=== PATIENT | female | born 1975 | race Caucasian/White ===

== ENCOUNTER → 2025-05-06 | Outpatient (CLI) | payer OTHER, SELFPAY ==
[2025-05-06 18:31] LABS: Follicle Stimulating Hormone 6.6 mIU/mL
[2025-05-10 01:07] LABS: Anti-Mullerian Hormone,Serum 0.044 ng/mL (.)
[2025-05-11 13:08] LABS: HPV APTIMA, High Risk Negative (Negative)
== END | disposition home or self-care (01) ==
PROVIDERS: Referring Provider Obstetrics & Gynecology; Visit Provider Obstetrics & Gynecology
DX: Z12.4 Encounter for screening for malignant neoplasm of cervix (principal); N91.2 Amenorrhea, unspecified
CPT/HCPCS: 36415; 82670; 83001; 83002; 83516; 87624; 88175; G0145

== ENCOUNTER 2025-06-18 09:15 | Day surgery (SDC) | payer OTHER, SELFPAY ==
[2025-06-11 15:02] LABS: Hematocrit 36.8 % (37-47); Hemoglobin 12.4 g/dL (12.0-15.0); Mean Corp Hgb Conc 33.7 g/dL (32-36); Mean Corpuscular Volume 86.4 fL (81-99); Mean Platelet Vol. 9.8 fl (6.2-12.0); Platelet Count 255 K/mm3 (150-450); RBC Distribution Width CV 12.9 % (11.6-14.6); RBC Distribution Width SD 39.9 fl (35.1-43.9); Red Blood Count 4.26 M/mm3 (4.2-5.4); White Blood Count 9.5 K/mm3 (4.4-11.0)
[2025-06-18] VITALS (9 sets, daily range): BP systolic 100–115; BP diastolic 61–82; PULSE 69–90; RESP 16–18; TEMP 36.5–36.6; O2SAT 93–98; BMI 30.3
--- NOTE | 2025-06-18 09:32 | EKG12_ITS ---
Test Reason : PREOP Blood Pressure : */* mmHG Vent. Rate : 83 BPM Atrial Rate : 83 BPM P-R Int : 154 ms QRS Dur : 70 ms QT Int : 368 ms P-R-T Axes : 66 25 28 degrees QTcB Int : 432 ms Normal sinus rhythm Normal ECG No previous ECGs available Confirmed by Sid Pineda ([id number]), photo editor EVELIO SHANNON ([id number]) on 06/19/2025 1:53:29 PM Referred By: Judy Pierre Confirmed By: Sid Pineda
[2025-06-18 09:49] LABS: Internal QC Validated? YES +Cl - CLEAR BKGD; Pregnancy, Urine Negative Negative
[2025-06-18 09:50] LABS: Record Kit Lot#,Urine Preg 980607
--- NOTE | 2025-06-18 10:40 | PCM.HP.BLA ---
History and Physical Date of Admission: 06/18/25 Intake Vital Signs 05/06/2515:51 06/11/2514:57 Height 5 ft 7 in 5 ft 7 in Weight: 192 lb 4 oz 194 lb 3 oz BMI 30.1 30.4 BP 117/80 110/76 Intake Visit Reasons: IUD removal under roberto. & BS Chief Complaint: pre op Supervisor Twisting Department Required: No Is patient in pain?: No Allergies No Known Allergies Allergy (Verified 06/11/25 14:55) Medications Medication Instructions Recorded Confirmed Type NK 05/06/25 06/11/25 History Patient : No : No [facility] Medical History Wears contact lenses Loose, teeth Former smoker History of multiple miscarriages Surgical History Hx of wisdom tooth extraction History of dilation and curettage Social History current occupational status: employed current occupation: [employer] sexually active: Yes Smoking Status: Former smoker alcohol intake: current alcohol intake frequency: holidays/special occasions only substance use type: does not use additional social history: : Andrew HPI IUD removal under roberto. & BS Details: LORRIE VALE is a 49 year old who presents for preop hysteroscopy D&C removal of IUD and laparoscopic bilateral salpingectomy for contraceptive management. IUD was attempted to be removed in the office without success. History 4 Elective abortions Hx Para 1 Spontaneous abortions Hx # Term Pregnancies Ectopic pregnancies Hx # Pregnancies Multiple births # of living children 1 Past Pregnancies Del. Date Name GA/Weeks Outcome Route Bth Weight Infant Gen [facility] Andrew Male [facility] [place] ROS Const ROS Unobtainable: All systems reviewed & are unremarkable except as noted in H Resp Resp: Reports system reviewed and no additional complaints, except as documented; Denies cough GI GI: Reports as per HPI Psych Psych: Reports system reviewed and no additional complaints, except as documented Exam Const General: cooperative, healthy appearing, comfortable and no acute distress Resp Effort & Inspection: normal respiratory effort Skin General: no rashes or lesions noted Psych Appearance: grossly normal Speech and Movement: speech and movement normal Coding Level of Care Code Off vis,est,level 4 Diagnoses IUD strings lost T83.32XA Consultation for sterilization Z30.09 Assessment and Plan Assessment and Plan (1) IUD strings lost: Status: Acute (2) Consultation for sterilization: Status: Acute Plan After discussing the patient's diagnosis and treatment plan options, patient wishes to proceed with surgical management. I have discussed with the patient the risks, benefits, and alternatives of the procedure which include but are not limited to risks of anesthesia, bleeding, infection, possible damage to bowel, bladder, or surrounding vasculature which could lead to additional surgery to evaluate any complications. Patient agrees to procedure and wishes to proceed. ACOG/uptodate references given for additional information regarding procedure. plan hysteroscopy removal of IUD and laparoscopic BS.
--- NOTE | 2025-06-18 10:41 | PCM.PRE.AN2 ---
ASA Classification* ASA Classification ASA Classification: 2 Assessment & Plan Anesthesia* Anesthesia Assessment Anesthesia Assessment: Discussed sedation and/or anesthesia options, risks, benefits, and alternatives with patient/parents/legal guardian/POA. Questions invited. The patient/parents/legal guardian/POA seems to understand and agrees to proceed with anesthesia plan. Reviewed the physical assessment, medical history, allergy history and patient home medications list prior to surgery/procedure/anesthetic and documented any changes. Performed airway and anesthesia risk assessments. Anesthesia Type Anesthesia Type: General History Source History Obtained from:: Patient and Chart Anesthesia Focused Assessment* Temperature: 97.7 F Pulse Rate: 78 Blood Pressure: 114/68 Respiratory Rate: 16 Pulse Ox: 98 Oxygen Delivery Method: Room Air Airway Assessment Mouth opens: >3 cm Mallampati Score: II Teeth Condition: Intact Labs Anesthesia Preop lab: CBC WBC, (4.4-11.0) 9.5 K/mm3 06/11/25, 14:44 RBC, (4.2-5.4) 4.26 M/mm3 06/11/25, 14:44 Hgb, (12.0-15.0) 12.4 g/dL 06/11/25, 14:44 Hct, (37-47) 36.8 % L 06/11/25, 14:44 Plt Count, (150-450) 255 K/mm3 06/11/25, 14:44 CHEMISTRY COAG PT, (11.7-14.9) 12.7 SECONDS 12/06/16, 21:25 Urine Test Negative Negative Today, 09:42 Pre-Assessment Diagnosis/Proposed Procedure Planned Operative Procedure(s): LAP SALPINGECTOMY REMOVAL OF RETAINED IUD Anesthesia History Anesthesia History - individualized education plan aide: Anesthesia History - individualized education plan aide Hx Hospitalization No 06/10/25 09:28 Any Problems With Anesthesia No 06/10/25 09:28 Cholinesterase deficiency No 06/10/25 09:28 You/Your Family Experience No 06/10/25 09:28 fever (hyperthermia) with Relationship Recent Exposure to Contagious No 06/18/25 09:58 Disease Does patient have nerve No 06/10/25 09:28 stimulator Patient instructed to have device shut off --Does patient have Pacemaker No 06/18/25 09:58 or ICD? When Was Last Pacemaker Check QUESTION #4 FULL TEXT: You/Your Family Experience fever (hyperthermia) with Anesthesia Last Oral Intake Last Oral intake: Last Oral Intake NPO since 05:30 06/18/25 09:58 Meds taken in AM with sips of No 06/18/25 09:58 water? Meds patient instructed to take am of surgery PONV PONV - individualized education plan aide: PONV - individualized education plan aide Female Yes 06/10/25 09:28 HX of Motion Sickness Yes 06/10/25 09:28 HX of N/V After Surgery No 06/10/25 09:28 Non-Smoker Yes 06/10/25 09:28 Duration of Surgery greater No 06/10/25 09:28 than 60 minutes Number of Risk Factors 3 06/10/25 09:28 PONV Score Moderate Risk 06/10/25 09:28 Height & Weight Height & Weight: Anesthesia: Height & Weight Height 5 ft 7 in 06/18/25 09:58 Weight: 87.9 kg 06/18/25 09:58 Body Mass Index (BMI) 30.3 06/18/25 09:58 Respiratory Assessment Respiratory Assessment - individualized education plan aide: Respiratory Tract Infection Hx - individualized education plan aide Hx Respiratory Tract Infection No 06/10/25 09:28 STOP Sleep Apnea STOP Sleep Apnea - individualized education plan aide: STOP Sleep Apnea - individualized education plan aide Hx Hypertension No 06/10/25 09:28 Hx Sleep Apnea No 06/10/25 09:28 CPAP BIPAP Do you snore loudly (louder No 06/10/25 09:28 than talking or can be heard Do you often feel tired/ Yes 06/10/25 09:28 fatigued/ sleepy during daytime? Has anyone observed you stop No 06/10/25 09:28 breathing during sleep? STOP Results Negative 06/10/25 09:28 QUESTION #5 FULL TEXT : Do you snore loudly (louder than talking or can be heard through closed doors)? Tobacco Use History Tobacco Use History - individualized education plan aide: Tobacco Use History - individualized education plan aide Tobacco Use Smoking Status Former smoker 06/10/25 09:28 Hx Tobacco Use No 06/10/25 09:28 Years Smoking Packs Smoked per Day Smoking Cessation Date was Yes - quit smoking within 15 06/10/25 09:28 within the last 15 years years Hx Smoking Cessation Date 08/02/23 06/10/25 09:28 Hx Smoking Cessation No 06/10/25 09:28 Counseling Hematologic Medial History Hematologic Hx - individualized education plan aide: Hematologic Medical Hx - documentation specialist Hx of Blood Transfusion No 06/10/25 09:28 Hx of Transfusion in last 3 No 06/10/25 09:28 Months Date of Last Transfusion (if within last 3 months) Ever experience any problems No 06/10/25 09:28 with transfusion(s)? Specify any problems Hx of Preganancy in last 3 No 06/10/25 09:28 Months Nurse Filling Out Transfusion DSCHRIBER 06/10/25 09:28 & Questions: Date: 06/10/25 06/10/25 09:28 Time: 06/10/25 09:28 Patient unable to answer at this time (ie. confused, unrespo /Reproduction History /Reproductive History - individualized education plan aide: /Reproductive Hx- individualized education plan aide Hx Now No 06/10/25 09:28 Gestational Age (in weeks): EDC: Hx Hx Para Hx Section SAB No 06/11/25 14:59 Does the father of the baby or his family experience fever w Father of the baby Malignant Hypertension history comment Active Medications Active Medications: Current Medications Generic Name Dose Route Start Last Admin Trade Name Freq PRN Reason Stop Dose Admin Lactated Ringer's 1,000 mls @ 15 mls/hr 06/18/25 09:30 IV .Q48H JD PFSH Medical History Wears contact lenses Loose, teeth Former smoker History of multiple miscarriages Home Medications Medication Instructions Recorded Last Taken Type NK 05/06/25 Unknown History Allergy/AdvReac Type Severity Reaction Status Date / Time No Known Allergies Allergy Verified 06/18/25 09:56 Surgical History Hx of wisdom tooth extraction History of dilation and curettage Social History current occupational status: employed current occupation: [employer] sexually active: Yes Smoking Status: Former smoker alcohol intake: current alcohol intake frequency: holidays/special occasions only substance use type: does not use additional social history: : Andrew Review of Systems (Anesthesia) ROS Narrative System reviewed and no additional complaints, except as documented. Physical Exam Const alert, oriented x3 and average body habitus Resp normal respiratory effort, normal air movement and clear to auscultation bilaterally Cardio regular rate, regular rhythm and no murmurs
--- NOTE | 2025-06-18 11:00 | FALS_PTH ---
PATIENT: LORRIE MALIK LOC: [facility] [place] U#:[id number] AGE/SX: 49/F ROOM: RE06/18/[address]: Dr. Lorrie Pierre DO : 1975 BED: DIS: 06/18/2025 SPEC #: [id number] RECD: 06/18/25 12:55 STATUS: HALLIE CLAY #: [id number] GANGA: 06/18/25 11:[address]: Lorrie Pierre DEPT: SURGICAL PATHOLOGY RECD BY: Deandre Mckeon ENTERED: 06/18/25 14:07 SP TYPE: FALL TUBES OTHR DR: [place] Primary Care Phys Tissues: A - Fallopian tube Procedures: Surgery Specimen Level II HEADER OPERATION: Laparoscopic, salpingectomy, hysteroscopy PRE-OP DIAGNOSIS: IUD strings lost, consultation for sterilization TISSUE SUBMITTED: A- Bilateral fallopian tubes MICROSCOPIC DIAGNOSIS A. Bilateral fallopian tubes, laparoscopic salpingectomy: - Complete luminal cross-section confirmed x2. MICROSCOPIC DESCRIPTION Slides are reviewed. GROSS DESCRIPTION A. Received in formalin labeled with the patient's name and date of . Designated as " bilateral fallopian tubes" are 2 pink-dunne red, undesignated fimbriated fallopian tubes averaging 8.2 cm in length by 0.6 cm in diameter. Few paratubal cyst are identified, 0.3 cm to 0.5 cm. Architect Internship sections are submitted in 2 cassettes. NM 06/18/2025 CPT:53945
--- NOTE | 2025-06-18 11:18 | PCM.DC ---
Discharge Instructions DC O2, CPAP, BIPAP needs Home O2 Discharge instructions: No Dressing / Incision Discharge Activity: Return to Normal Activity, May Not Drive (for two weeks or while taking narcotic pain medications.), May Shower and May Take a Tub Bath (in 7 days) May resume sexual activity in: 1 week Weight Bearing Status: Full weight bearing Dressing / Incision Call your doctor if you observe: Using more than 1 pad per hour, Shortness of breath, Chest pain and Uncontrolled pain Suture Line Care: Avoid Pulling/Pushing and Avoid Pinching/Bending Remove Dressing in: 1 week (if present) Cleanse incision/area with: Soap & Water and Keep Dressing Clean & Dry Follow Up Care Please Follow Up With: Judy Pierre DO When: Call to make an appointment with your doctor for a follow up incision check in 1-2 weeks. Test Results: Test results from this visit will be discussed in further detail at your follow-up appointment, if applicable. Discharge Plan Admission Primary Reason for Your Visit: laparoscopic salpingectomy Attending Provider: Judy Pierre Primary Care Provider: Care PhysicianAngeles Primary Instructions Print Language: Zambian Discharge Orders/Prescriptions Prescriptions: New ibuprofen 800 mg tablet 800 mg PO Q8H PRN (Reason: pain) Qty: 30 0RF oxycodone-acetaminophen [Percocet] 5-325 mg tablet 1 tab PO Q4H PRN (Reason: pain) 7 Days Qty: 10 0RF Referrals / Follow Up: Care PhysicianNo Primary [Primary Care Provider, Medical] Disposition Disposition (needs filled in before D/C Order can be placed): Home, Self Care
[2025-06-18] MEDS: Midazolam 2 MG/2 ML Syringe IV (11:35)
[2025-06-18] MEDS: Lidocaine 1% (5 ml sdv) 5 ML Vial 8 ML IV (11:43)
[2025-06-18] MEDS: fentaNYL 100 MCG/2 ML Ampul IV (11:53)
--- NOTE | 2025-06-18 12:24 | OP.PCM_ITS ---
Multi Select Codes Urinary/Genital Urinary/Genital CPT Codes: 63525 [place] [address] Laproscopic BS/O Operative Report (Standard) Operative Information Date of Procedure: 06/18/25 Pre-Operative Diagnosis: desires permanent sterilization, IUD string lost, desires removal Post-Operative Diagnosis: desires permanent sterilization, iud strings lost, desires removal Surgery/Procedure Performed: laparoscopic bilateral salpingectomy, hysteroscopic removal of iud wheel shop supervisor: Yes Creative Services Director: Los Hillman Tasks completed by first line supervisor: Closing and Other (cameral voss ) Additional assistant grocery store manager?: No Type of Anesthesia: General RN Documented Start/Stop Times: Operation Date: 06/18/25 11:00 Case Time Into Pre-Op 06/18/25 09:31 Out of Pre-Op 06/18/25 11:30 Procedure Start Time: 11:57 Procedure Stop Time: 12:26 Select all DRAINS/GRAFTS/IMPLANTS that apply: None Estimated Blood Loss: 5cc Specimen collected: Yes Description of specimen(s) removed: bilateral fallopian tubes Description of surgery: Patient was taken in the operating room and was placed under general anesthesia was prepped and draped in normal sterile fashion in the dorsal lithotomy position. Bladder was drained of clear urine and SCDs were on preoperatively. Uterus was sounded and a uterine manipulator was placed after dilating. Attention was then paid to the abdominal portion of the procedure and the umbilicus was injected with 0.75% sensorcaine Next a 5 mm incision was made and a 5 mm laparoscopic port was inserted under direct visualization. The Abdomen was insufflated with CO2 gas and a Left lower quadrant 5 mm port was placed. A suprapubic 5mmi trocar was then inserted next. The Uterus was well visualized and bilateral fallopian tubes and ovaries were identified and the infundibulopelvic ligaments were transected across using the LigaSure device followed by transecting across the mesosalpinx to the attachment to the uterine corpus bilaterally the tubes and ovaries were removed without complication. Excellent hemostasis was noted. Fallopian tubes were removed through the lower port sites without complication. Liver and upper abdomen were visualized notably within normal limits and no other gross abnormalities were seen in the abdomen. All instruments removed from the abdomen after gas was desufflated. Port sites were closed with 3-0 Monocryl and surgical glue was used. Next, attention was turned to the vagina and a weighted speculum was placed in the vagina. This uterine manipulator was removed. A 5 mm hysteroscope was inserted into the uterus and the IUD and strings were not identified. Using a hysteroscopic grasper the IUD string was grasped and the device was pulled out without difficulty. The single-tooth tenaculum was removed from the cervix. Excellent hemostasis was noted and all instruments removed from the vagina and patient was awoken and taken recovery in stable condition. Surgical Findings: normal uterus, tubes, ovaries , intact intrauterine device string tucked into the uterus. Complications Complications: No Admit VTE Documentation VTE Present on Admission: No VTE Mechan Device Prophylaxis: SCD's VTE Pharm Prophylaxis ordered?: No
[2025-06-18] MEDS: Ketorolac 30 MG/ML Syringe IV (12:29)
--- NOTE | 2025-06-18 12:49 | PCM.POST.ANE ---
Anesthesia: Postop Eval I Current Vital Signs Temperature: 97.8 F Pulse Rate: 90 Blood Pressure: 114/77 Respiratory Rate: 18 Pulse Ox: 96 Assessment Airway patent: Yes Spontaneous unlabored respirations: Yes nausea: No Vomiting: No Anesthesia Complication: No Fluid Hydration Crystalloid volume administer (ml): 700 Total IV fluid infused: 700 Progress Note Anesthesia document: Postop Eval 1 completed: Yes
--- NOTE | 2025-06-18 15:38 | POSTOPAN2_ITS ---
Anesthesia Postop Eval I Sum Postop Eval Completion status Anesthesia document: Postop Eval 1 completed: Yes Anesthesia Postop Eval I Summary Anesthesia Postop Eval I Summary: Anesthesia Postop Eval I: Assessment Summary Airway patent Yes 06/18/25 12:49 SEXUAL ASSAULT NURSE.TNES Spontaneous unlabored Yes 06/18/25 12:49 SEXUAL ASSAULT NURSE.TNES respirations Mental status nausea No 06/18/25 12:49 SEXUAL ASSAULT NURSE.TNES Vomiting No 06/18/25 12:49 SEXUAL ASSAULT NURSE.TNES Anesthesia Postop Eval I: Fluid Summary Crystalloid volume administer 700 06/18/25 12:49 SEXUAL ASSAULT NURSE.TNES (ml) Colloids volume administered ( ml) Blood Product volume administered (ml) Total IV fluid infused 700 06/18/25 12:49 SEXUAL ASSAULT NURSE.TNES Anesthesia Postop Eval I: Summary Notes Anesthesia Complication No 06/18/25 12:49 SEXUAL ASSAULT NURSE.TNES Anesthesia Complication Comment: Post-operative progress note Anesthesia: Postop Eval II Evaluation Mental status: Awake Pain Level: 0 nausea: No Vomiting: No Complications Anesthesia Complication: No
--- NOTE | 2025-06-18 15:38 | PCM.POSTANE2 ---
Anesthesia Postop Eval I Sum Postop Eval Completion status Anesthesia document: Postop Eval 1 completed: Yes Anesthesia Postop Eval I Summary Anesthesia Postop Eval I Summary: Anesthesia Postop Eval I: Assessment Summary Airway patent Yes 06/18/25 12:49 ENVIRONMENTAL MARKETER.TNES Spontaneous unlabored Yes 06/18/25 12:49 ENVIRONMENTAL MARKETER.TNES respirations Mental status nausea No 06/18/25 12:49 ENVIRONMENTAL MARKETER.TNES Vomiting No 06/18/25 12:49 ENVIRONMENTAL MARKETER.TNES Anesthesia Postop Eval I: Fluid Summary Crystalloid volume administer 700 06/18/25 12:49 ENVIRONMENTAL MARKETER.TNES (ml) Colloids volume administered ( ml) Blood Product volume administered (ml) Total IV fluid infused 700 06/18/25 12:49 ENVIRONMENTAL MARKETER.TNES Anesthesia Postop Eval I: Summary Notes Anesthesia Complication No 06/18/25 12:49 ENVIRONMENTAL MARKETER.TNES Anesthesia Complication Comment: Post-operative progress note Anesthesia: Postop Eval II Evaluation Mental status: Awake Pain Level: 0 nausea: No Vomiting: No Complications Anesthesia Complication: No
== END 2025-06-18 13:51 | disposition home or self-care (01) ==
LOC: SDC 09:21 → AC 09:21
PROVIDERS: Referring Provider Obstetrics & Gynecology; Visit Provider Obstetrics & Gynecology
DX: T83.32XA Displacement of intrauterine contraceptive device, initial encounter (principal); Z30.2 Encounter for sterilization; Z87.891 Personal history of nicotine dependence; Y76.8 Miscellaneous obstetric and gynecological devices associated with adverse incidents, not elsewhere classified
CPT/HCPCS: 58661; 58301; 00840; 36415; 81025; 85027; 86850; 86900; 86901; 88302; 93005; J2405